=== PATIENT | female | born 1950 | race Caucasian/White ===

== ENCOUNTER 2020-05-01 07:34 | Outpatient (CLI) | payer MEDICARE, OTHER ==
[2020-05-01 14:54] LABS: BASOPHILS % (AUTO) 0.7 %; EOSINOPHILS % (AUTO) 3.9 %; HGB - HEMOGLOBIN 12.9 g/dL (12.0-16.0); LYMPHOCYTES % (AUTO) 40.5 %; MEAN CORPUSCULAR HEMOGLOBIN 31.2 pg (27.0-31.0); MEAN CORPUSCULAR HGB CONC 31.4 g/dL (32.0-36.0); MEAN CORPUSCULAR VOLUME 99.3 fL (81.0-99.0); MEAN PLATELET VOLUME 10.7 fL (7.9-10.8); MONOCYTES % (AUTO) 12.2 %; NEUTROPHILS % (AUTO) 42.3 %; PLT - PLATELET COUNT 222 10^3/uL (130-450); RED BLOOD COUNT 4.14 10^6/uL (4.20-5.40); WHITE BLOOD COUNT 2.8 x10^3/uL (4.8-10.8)
[2020-05-01 15:12] LABS: ABNORMAL LYMPHS % (MANUAL) 0 %; BAND NEUTROPHILS % (MANUAL) 0 %
[2020-05-01 15:23] LABS: ALBUMIN 4.1 g/dL (3.2-5.5); ALBUMIN/GLOBULIN RATIO 1.4 (1.0-2.2); ALKALINE PHOSPHATASE 53 IU/L (42-121); ALT ALANINE AMINOTRANSFERASE 23 IU/L (10-60); AST ASPARTATE AMINOTRANSFERASE 24 IU/L (10-42); BILIRUBIN,TOTAL 1.1 mg/dL (0.2-1.0); BUN - BLOOD UREA NITROGEN 21 mg/dL (6-20); CALCIUM 8.9 mg/dL (8.5-10.3); CARBON DIOXIDE - CO2 27 mmol/L (21-32); CHLORIDE 105 mmol/L (101-111); CHOL/HDL RATIO 3.3 (<4.4); CHOLESTEROL 281 mg/dL; CREATININE 0.7 mg/dL (0.4-1.0); GLUCOSE 115 mg/dL (70-100); HDL CHOLESTEROL 86 mg/dL; LDL CHOLESTEROL,CALCULATED 174 mg/dL; SODIUM 137 mmol/L (135-145); TOTAL PROTEIN 7.1 g/dL (6.7-8.2); VLDL CHOLESTEROL 21 mg/dL
[2020-05-01 15:25] LABS: DIFFERENTIAL COMMENT MANUAL DIFFERENTIAL; EOSINOPHILS # (MANUAL) 0.1 10^3/uL (0-0.7); LYMPHOCYTES # (MANUAL) 1.1 10^3/uL (1.5-3.5); LYMPHOCYTES % (MANUAL) 41 %; MONOCYTES # (MANUAL) 0.3 10^3/uL (0.0-1.0); PLATELET ESTIMATE, MANUAL NORMAL (130-450,000) (NORMAL); PLATELET MORPHOLOGY NORMAL APPEARANCE (NORMAL); RBC MORPHOLOGY (MULTIPLE) NORMAL APPEARANCE (NORMAL)
[2020-05-02 12:15] LABS: HEPATITIS C ANTIBODY NON-REACTIVE (NON-REACTIVE)
== END 2020-05-01 07:35 | disposition home or self-care (01) ==
LOC: LAB.S 07:34
PROVIDERS: ATTEND Registered Nurse
DX: F41.9 Anxiety disorder, unspecified (principal); J45.998 Other asthma; I10 Essential (primary) hypertension; Z11.59 Encounter for screening for other viral diseases
CPT/HCPCS: 36415; 80053; 80061; 83721; 84443; 85025; 86803

== ENCOUNTER 2020-05-14 09:50 | Outpatient (CLI) | payer MEDICARE, OTHER ==
--- NOTE | 2020-05-14 10:22 | DEXA Report ---
Reason: SCREENING FOR OSTEOPOROSIS Procedure Date: 05/14/2020 Accession Number: [id number] / [id number] Procedure: DEX - Dexa Spine and/or Hip CPT Code: Final Report FULL RESULT: PROCEDURE: Dexa Spine and/or Hip INDICATIONS: SCREENING FOR OSTEOPOROSIS TECHNIQUE: Dual energy x-ray absorptiometry (DXA) was performed on a [employer] System. Regions measured are the AP Spine, femoral neck, and if needed forearm. COMPARISON: None. FINDINGS: Lumbar Spine: Bone Mineral Density 1.191 g/cm/cm,T score 0.1 Hip: Bone Mineral Density 0.839 g/cm/cm,T score -1.3 Femoral Neck: Bone Mineral Density 0.844 g/cm/cm, T score -1.4 (T score greater or equal to -1.0: NORMAL) (T score from -1.1 to -2.4: OSTEOPENIA) (T score less than or equal to -2.5 to: OSTEOPOROSIS) Impression: Based on WHO criteria, the patient is osteopenic. Patients with diagnosis of osteoporosis or osteopenia should have regular bone mineral density assessment. For those eligible for Medicare, routine testing is allowed once every 2 years. Testing frequency can be increased for patients who have rapidly progressing disease or for those who are receiving medical therapy to restore bone mass. Reviewed by: Elian Harris MD on 05/14/2020 10:21 AM PDT Approved by: Elian Harris MD on 05/14/2020 10:21 AM PDT Station ID: [id number]
== END 2020-05-14 09:51 | disposition home or self-care (01) ==
LOC: DI 09:50
PROVIDERS: ATTEND Registered Nurse
DX: Z13.820 Encounter for screening for osteoporosis (principal); M85.89 Other specified disorders of bone density and structure, multiple sites
CPT/HCPCS: 77080

== ENCOUNTER 2021-07-02 07:27 | Outpatient (CLI) | payer MEDICARE, OTHER ==
[2021-07-02 14:47] LABS: BASOPHILS # (AUTO) 0.1 10^3/uL (0.0-0.1); BASOPHILS % (AUTO) 1.7 %; EOSINOPHILS # (AUTO) 0.1 10^3/uL (0.0-0.7); EOSINOPHILS % (AUTO) 4.8 %; HCT - HEMATOCRIT 43.7 % (37.0-47.0); HGB - HEMOGLOBIN 14.2 g/dL (12.0-16.0); LYMPHOCYTES # (AUTO) 1.2 10^3/uL (1.5-3.5); MEAN CORPUSCULAR HEMOGLOBIN 32.2 pg (27.0-31.0); MEAN CORPUSCULAR HGB CONC 32.5 g/dL (32.0-36.0); MEAN CORPUSCULAR VOLUME 99.1 fL (81.0-99.0); MEAN PLATELET VOLUME 10.7 fL (7.9-10.8); MONOCYTES # (AUTO) 0.4 10^3/uL (0.0-1.0); MONOCYTES % (AUTO) 13.4 %; NEUTROPHILS # (AUTO) 1.1 10^3/uL (1.5-6.6); NEUTROPHILS % (AUTO) 39.1 %; PLT - PLATELET COUNT 268 10^3/uL (130-450); RED BLOOD COUNT 4.41 10^6/uL (4.20-5.40); RED CELL DISTRIBUTION WIDTH 11.9 % (12.0-15.0); WHITE BLOOD COUNT 2.9 x10^3/uL (4.8-10.8)
[2021-07-02 14:49] LABS: SLIDE REVIEW? Indicated
[2021-07-02 15:13] LABS: ALBUMIN 4.7 g/dL (3.2-5.5); ALBUMIN/GLOBULIN RATIO 1.6 (1.0-2.2); ALKALINE PHOSPHATASE 55 IU/L (42-121); ALT ALANINE AMINOTRANSFERASE 25 IU/L (10-60); AST ASPARTATE AMINOTRANSFERASE 25 IU/L (10-42); BILIRUBIN,TOTAL 0.8 mg/dL (0.2-1.0); BUN - BLOOD UREA NITROGEN 19 mg/dL (6-20); CALCIUM 9.5 mg/dL (8.5-10.3); CARBON DIOXIDE - CO2 27 mmol/L (21-32); CHLORIDE 102 mmol/L (101-111); CHOL/HDL RATIO 2.7 (<4.4); CHOLESTEROL 278 mg/dL; CREATININE 0.7 mg/dL (0.4-1.0); GFR - MDRD 83 (>89); GLUCOSE 102 mg/dL (70-100); HDL CHOLESTEROL 102 mg/dL; LDL CHOLESTEROL,CALCULATED 161 mg/dL; LDL/HDL RATIO 1.6 (<4.4); POTASSIUM 4.6 mmol/L (3.5-5.0); SODIUM 140 mmol/L (135-145); TOTAL PROTEIN 7.6 g/dL (6.7-8.2); TRIGLYCERIDES 73 mg/dL; VLDL CHOLESTEROL 15 mg/dL
[2021-07-02 15:18] LABS: THYROID STIMULATING HORMONE 2.67 uIU/mL (0.34-5.60)
[2021-07-02 15:42] LABS: PLATELET ESTIMATE, MANUAL NORMAL (130-450,000) (NORMAL); PLATELET MORPHOLOGY NORMAL APPEARANCE (NORMAL); RBC MORPHOLOGY (MULTIPLE) NORMAL APPEARANCE (NORMAL); WBC MORPHOLOGY (MULTIPLE) NORMAL APPEARANCE (NORMAL)
== END 2021-07-02 07:28 | disposition home or self-care (01) ==
LOC: LAB.S 07:27
PROVIDERS: ATTEND Registered Nurse
DX: F41.9 Anxiety disorder, unspecified (principal); J45.998 Other asthma; I10 Essential (primary) hypertension
CPT/HCPCS: 36415; 80053; 80061; 83721; 84443; 85025